=== PATIENT | female | born 1995 | race Caucasian/White ===

== ENCOUNTER 2022-07-15 18:04 | Emergency (ER) | payer OTHER, SELFPAY ==
[2022-07-15 19:12] LABS: Absolute Lymphocytes (CBC) 1.6 K/uL (0.7-4.9); Hematocrit 37.8 % (36.0-45.0); Lymphocytes % 17.4 % (15.3-44.8); MCV 86.6 fL (80-100); RBC Red Blood Cell Count 4.36 M/uL (3.86-4.86)
[2022-07-15 19:16] LABS: Protime INR 1.05
[2022-07-15 19:32] LABS: ALT/SGPT 14 U/L (13-56); AST/SGOT 10 U/L (15-37); Albumin 4.2 g/dL (3.4-5.0); Alkaline Phosphatase 68 U/L (45-117); BUN Blood Urea Nitrogen 19 mg/dL (7-18); Bicarbonate 28 mmol/L (21-32); Bilirubin Total 0.3 mg/dL (0.2-1.0); Glomerular Filtration Rate 77 ml/min (=/>90); Glucose Level 104 mg/dL (74-106); Potassium 3.9 mmol/L (3.5-5.1); Protein, Total 7.1 g/dL (6.4-8.2); Sodium Level 138 mmol/L (136-145)
[2022-07-15 19:34] LABS: Bilirubin Direct < 0.1 mg/dL (0-0.2)
[2022-07-15 19:35] LABS: Urine Blood Negative (Negative); Urine Glucose Negative (Negative); Urine Protein Negative (Negative); Urine pH 7.5 (5.0-7.0)
--- NOTE | 2022-07-15 19:41 | ER ---
Nurse's Notes [facility] Name: Moreno Trejo Age: 26 yrs Sex: Female : 1995 Arrival Date: 07/15/2022 Time: 18:05 Bed 4 Private MD: Diagnosis: Other depressive episodes Presentation: 07/15 18:19 Chief complaint: Patient states: "I'm just done with everything and mentally kc6 overwhelmed." stated she lost her son in Jan. and is currently homeless. reports thoughts of SI. stated she would either overdose or cut herself. Coronavirus screen: Vaccine status: Patient reports being unvaccinated. At this time, the client does not indicate any symptoms associated with coronavirus-19. Ebola Screen: No symptoms or risks identified at this time. Initial Sepsis Screen: Does the patient meet any 2 criteria? No. Patient's initial sepsis screen is negative. Does the patient have a suspected source of infection? No. Patient's initial sepsis screen is negative. Risk Assessment: Do you want to hurt yourself or someone else? Patient reports desire/thoughts of hurting themselves or someone else. Provider notified. Onset of symptoms was July 15, 2022. 18:19 Method Of Arrival: Law Enforcement: [place] kc6 18:19 Acuity: LETTY 2 kc6 Triage Assessment: 18:21 General: Appears in no apparent distress. comfortable, Behavior is cooperative, kc6 appropriate for age, crying. Pain: Denies pain. EENT: No signs and/or symptoms were reported regarding the EENT system. Neuro: Cobb Agitation-Sedation Scale (RASS): 0 - Alert and Calm Level of Consciousness is awake, alert, obeys commands, Oriented to person, place, time, situation, Appropriate for age. Cardiovascular: Capillary refill < 3 seconds. Respiratory: Airway is patent Trachea midline Respiratory effort is even, unlabored, Respiratory pattern is regular, symmetrical. GI: No signs and/or symptoms were reported involving the gastrointestinal system. : No signs and/or symptoms were reported regarding the genitourinary system. Derm: Skin is intact, Skin is pink, warm \\T\\ dry. Musculoskeletal: No signs and/or symptoms reported regarding the musculoskeletal system. Circulation, motion, and sensation intact. Capillary refill < 3 seconds, Range of motion: intact in all extremities. 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 Flu vaccine is not up to date. - Social history:: Smoking status: Reported history of juuling and/or vaping. Screenin:23 [facility] ED Fall Risk Assessment (Adult) History of falling in the last 3 months, kc6 including since admission No falls in past 3 months (0 pts) Confusion or Disorientation No (0 pts) Intoxicated or Sedated No (0 pts) Impaired Gait No (0 pts) Mobility Assist Device Used No (0 pt) Altered Elimination No (0 pt) Score/Fall Risk Level 0 - 2 = Low Risk Oriented to surroundings, Maintained a safe environment, Educated pt \\T\\ family on fall prevention, incl call for assistance when getting out of bed, Assessed \\T\\ reinforced patient's understanding of fall precautions, Hourly rounding (assess needs \\T\\ fall precautionary measures) done. Abuse screen: Denies threats or abuse. Denies injuries from another. Nutritional screening: No deficits noted. Tuberculosis screening: No symptoms or risk factors identified. Assessment: 18:19 Reassessment: please see triage assessment. kc6 19:54 General: "I've been thinking and I want to be discharged. I need to work. I don't want as6 to kill myself, life has just been getting to me". 20:00 Reassessment: Patient and/or family updated on plan of care and expected duration. Pain ha1 level reassessed. Patient is alert, oriented x 3, equal unlabored respirations, skin warm/dry/pink. 21:18 Reassessment: Patient and/or family updated on plan of care and expected duration. Pain ha1 level reassessed. Patient is alert, oriented x 3, equal unlabored respirations, skin warm/dry/pink. 22:18 Reassessment: Patient and/or family updated on plan of care and expected duration. Pain ha1 level reassessed. Patient is alert, oriented x 3, equal unlabored respirations, skin warm/dry/pink. patient reports wanting to leave. notified care provider. care provider states " if she leaves we will notify police". Psych: 18:55 [place] Suicide Severity Screening: In the past month, have you wished you were kc or wished you could go to sleep and not wake up? Patient responds "yes." Based off the client's responses additional C-SSRS screening is required. "In the past month, have you actually had any thoughts of killing yourself?" Patient responds "yes." Based off the client's response additional [place] suicide severity screening questions to be further documented on paper forms. "In your lifetime, have you ever done anything, started to do anything, or prepared to do anything to end your life?" Patient responds "yes." Patient reports suicidal intent occurred greater than 3 months prior. Subjective: Patient's mood is sad, Delusions are denied, Hallucinations are denied Having thoughts of suicide. Plan for suicide is to cut herself or overdose. Objective: Patient is cooperative, Speech is normal, Affect is appropriate. Interventions: Removed personal items and placed in bag. Patient placed in hospital gown. Searched person for dangerous items. Urine collected and sent for urine drug test. Belonging list filled out. Safety Checks: Personal items have been removed. Door is open. No visitors are present at this time. Pt denies substance abuse. Commitment: Patient will be a voluntary commitment. Vital Signs: 18:19 BP 120 / 92; Pulse 81; Resp 16 S; Temp 97.8(O); Pulse Ox 100% on R/A; Weight 58.97 kg kc6 (R); Height 5 ft. 2 in. (157.48 cm) (R); Pain 0/10; 18:19 Body Mass Index 23.78 (58.97 kg, 157.48 cm) kc6 ED Course: 18:05 Patient arrived in ED. ss 18:05 Bryan Linares PA is PHCP. cp 18:05 James Felton MD is Attending Physician. cp 18:21 Triage completed. kc6 18:21 Arm band placed on. kc6 18:24 Patient has correct armband on for positive identification. Placed in gown. Bed in low kc6 position. Call light in reach. Side rails up X2. Valuables inventory done. Locked in safe. See valuables checklist. 18:54 Merritt, Lashanda, RN is Primary Nurse. kc6 18:56 Inserted saline lock: 20 gauge in right antecubital area, using aseptic technique. kc6 Blood collected. 21:22 SARS RAPID Sent. ed2 21:50 SARS RAPID Sent. ed2 22:20 No provider procedures requiring assistance completed. IV discontinued, intact, ha1 bleeding controlled, No redness/swelling at site. Pressure dressing applied. Administered Medications: 19:53 Drug: NS 0.9% 1000 ml Route: IV; Rate: 1 bolus; Site: right antecubital; as6 Medication: 22:21 VIS not applicable for this client. ha1 Outcome: 19:40 ER care complete, transfer ordered by MD. cp 22:20 Discharged to home ambulatory. ha1 22:20 Condition: stable 22:23 Discharge ordered by MD. cp 22:24 Discharge instructions given to patient, Instructed on discharge instructions, follow ha1 up and referral plans. Demonstrated understanding of instructions, follow-up care. 22:39 Patient left the ED. ha1 Signatures: Ivette Harvey RN RN Bryan Shah PA PA cp Ghanshyam Moreno RN RN as6 Radha Nicholson RN RN ha1 Lashanda Merritt RN RN kc6 June Coley ed2
--- NOTE | 2022-07-15 19:41 | EDPHYS ---
Physician Documentation [facility] Name: Moreno Trejo Age: 26 yrs Sex: Female : 1995 Arrival Date: 07/15/2022 Time: 18:05 Bed 4 Private MD: ED Physician James Felton HPI: 07/15 18:09 This 36 yrs old Female presents to ER via Unassigned with complaints of Suicidal cp Ideation. 18:10 The patient presents to the emergency department with suicide ideation, and the patient cp has a plan, to cut oneself and bleed, to overdose with medications. 18:10 Past psychiatric history: Prior diagnosis: depression. Associated signs and symptoms: cp The patient has no apparent associated signs or symptoms. Patient presents to ED after calling law enforcement concerning suicidal thoughts today. Patient admits to thoughts of overdosing of medications due to recent loss of child last year in February. 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 Flu vaccine is not up to date. - Social history:: Smoking status: Reported history of juuling and/or vaping. ROS: 18:15 Constitutional: Negative for body aches, chills, fever, poor PO intake. cp 18:15 Cardiovascular: Negative for chest pain, edema, palpitations. 18:15 Eyes: Negative for injury, pain, redness, and discharge. cp 18:15 ENT: Negative for drainage from ear(s), ear pain, sore throat, difficulty swallowing, difficulty handling secretions. 18:15 Respiratory: Negative for cough, shortness of breath, wheezing. 18:15 Abdomen/GI: Negative for abdominal pain, nausea, vomiting, and diarrhea. 18:15 Neuro: Negative for altered mental status, dizziness, headache, weakness. 18:15 Psych: Positive for depression, suicidal ideation, Negative for auditory hallucinations, visual hallucinations, homicidal ideation. 18:15 All other systems are negative. Exam: 18:18 Constitutional: The patient appears in no acute distress, alert, awake, cp non-diaphoretic, non-toxic, well developed, well nourished. 18:18 Head/Face: Normocephalic, atraumatic. cp 18:18 Eyes: Periorbital structures: appear normal, Conjunctiva: normal, no exudate, no injection, Sclera: no appreciated abnormality, Lids and lashes: appear normal, bilaterally. 18:18 ENT: External ear(s): are unremarkable, Nose: is normal, Mouth: Lips: moist, Oral mucosa: moist, Posterior pharynx: is normal, airway is patent, no erythema, no exudate. 18:18 Chest/axilla: Inspection: normal, Palpation: is normal, no crepitus, no tenderness. 18:18 Cardiovascular: Rate: normal, Rhythm: regular. 18:18 Respiratory: the patient does not display signs of respiratory distress, Respirations: normal, no use of accessory muscles, no retractions, labored breathing, is not present, Breath sounds: are clear throughout, no decreased breath sounds, no stridor, no wheezing. 18:18 Abdomen/GI: Exam negative for discomfort, distension, guarding, Inspection: abdomen appears normal. 18:18 Neuro: Orientation: to person, place \T\ time. Mentation: is normal, Motor: moves all fours, strength is normal, Sensation: is normal. 18:18 Psych: Behavior/mood is pleasant, cooperative, Affect is calm, Judgement / Insight is normal. 19:33 ECG was reviewed by the Attending Physician. cp Vital Signs: 18:19 BP 120 / 92; Pulse 81; Resp 16 S; Temp 97.8(O); Pulse Ox 100% on R/A; Weight 58.97 kg kc6 (R); Height 5 ft. 2 in. (157.48 cm) (R); Pain 0/10; 18:19 Body Mass Index 23.78 (58.97 kg, 157.48 cm) kc6 MDM: 18:09 Patient medically screened. cp 20:00 Data reviewed: vital signs, nurses notes, lab test result(s), EKG. cp 22:23 ED course: VSS. Patient denies any active thoughts of suicide and/or homicide at this cp time. Reports increased stress due to living at [facility] and requesting discharge at this time. 07/15 18:13 Order name: Acetaminophen; Complete Time: 19:36 cp 07/15 18:13 Order name: Basic Metabolic Panel; Complete Time: 19:36 cp 07/15 19:36 Interpretation: Normal except: BUN 19; CRE 1.04; GFR 77. cp 07/15 18:13 Order name: CBC with Diff; Complete Time: 19:16 cp 07/15 19:36 Interpretation: Normal except: RDW 15.5; CHRISTIAN% 74.9. cp 07/15 18:13 Order name: ETOH Level; Complete Time: 19:36 cp 07/15 18:13 Order name: Hepatic Function; Complete Time: 19:36 cp 07/15 18:13 Order name: PT-INR; Complete Time: 19:36 cp 07/15 18:13 Order name: Ptt, Activated; Complete Time: 19:36 cp 07/15 18:13 Order name: Urine Drug Screen cp 07/15 18:13 Order name: EKG; Complete Time: 18:14 cp 07/15 18:13 Order name: EKG - Nurse/Tech; Complete Time: 19:36 cp 07/15 18:13 Order name: IV Saline Lock; Complete Time: 18:54 cp 07/15 18:13 Order name: Labs collected and sent; Complete Time: 19:07 cp 07/15 18:13 Order name: Suicide Precautions; Complete Time: 18:54 cp 07/15 18:13 Order name: Suicide Screening (Industry); Complete Time: 18:54 cp 07/15 18:13 Order name: Urine Dipstick-Ancillary (obtain specimen); Complete Time: 19:36 cp 07/15 18:13 Order name: Urine Test (obtain specimen); Complete Time: 19:36 cp 07/15 19:35 Order name: Urine Dipstick-Ancillary; Complete Time: 19:36 EDMS 07/15 19:36 Order name: Urine --Ancillary (enter results) ds4 07/15 19:50 Order name: SARS RAPID as6 EC:33 Rate is 60 beats/min. Rhythm is regular. UT interval is normal. QRS interval is normal. cp QT interval is normal. T waves are Inverted in lead aVR. Interpreted by me. Reviewed by me. Administered Medications: 19:53 Drug: NS 0.9% 1000 ml Route: IV; Rate: 1 bolus; Site: right antecubital; as6 Disposition Summary: 07/15/22 22:23 Discharge Ordered Location: Home cp Problem: new(07/15/22 22:23) cp Symptoms: have improved(07/15/22 22:23) cp Condition: Stable(07/15/22 22:23) cp Diagnosis - Other depressive episodes cp Followup: cp - With: Private Physician - When: 1 - 2 days - Reason: Recheck today's complaints Discharge Instructions: - Discharge Summary Sheet cp - Managing Depression, Adult cp - Managing Loss, Adult cp Forms: - Medication Reconciliation Form cp - Thank You Letter cp - Antibiotic Education cp - Prescription Opioid Use cp Signatures: Dispatcher [employer] EDMS Bryan Linares PA PA cp Ghanshyam Moreno RN RN as6 Lashanda Merritt RN RN kc6 Corrections: (The following items were deleted from the chart) 22:22 19:40 Doctor cp cp 22:22 19:40 Psych Facility cp cp 22:22 19:40 Higher level of care cp cp 22:22 19:40 Stable cp cp 22:22 19:40 new cp cp 22:22 19:40 are unchanged cp cp 22:22 19:40 Suicidal ideations cp cp
[2022-07-15 19:53] LABS: Barbiturates NEGATIVE (NEGATIVE); Benzodiazepines NEGATIVE (NEGATIVE); Cocaine NEGATIVE (NEGATIVE); METHAMPHETAM NEGATIVE (NEGATIVE); Methadone NEGATIVE (NEGATIVE); Opiates NEGATIVE (NEGATIVE); Phencyclidine NEGATIVE (NEGATIVE); THC Cannibis POSITIVE (NEGATIVE)
[2022-07-15] MEDS ORDERED: NA CHLORIDE 0.9% 1,000 ML ONE (19:55)
[2022-07-15 21:59] LABS: SARS-CoV-2 Antigen Rapid Res Negative (Negative)
[2022-07-15 23:18] VITALS: BP 120/92; TEMP 97.8; O2SAT 100
--- NOTE | 2022-07-16 11:15 | EKG ---
Test Date: 2022-07-15 Test Time: 19:29:43 Interlocking Pavement Installer: MEASUREMENT RESULTS: Intervals: Rate: 60 IA: 148 QRSD: 84 QT: 412 QTc: 412 [place]: P: 28 IA: 148 QRS: 49 T: 42 INTERPRETIVE STATEMENTS: Sinus rhythm Possible Anterior infarct, age undetermined Abnormal ECG No previous ECG available for comparison Electronically Signed On 07-16-22 11:14:11 EPIC MANAGER by Davian Yo
== END 2022-07-15 22:39 | disposition home or self-care (01) ==
LOC: EDBD 18:04 → ER 18:04
DX: F32.89 Other specified depressive episodes (principal); R45.851 Suicidal ideations; Z20.822 Contact with and (suspected) exposure to COVID-19
CPT/HCPCS: 85025; 80048; 36415; 81025; 85610; 80076; 85730; 81003; 80307; 87811; J7030; G0480 ×2; 93005